=== PATIENT | male | born 1985 | race African-American/Black ===

== ENCOUNTER 2019-11-24 12:49 | Emergency (ER) | payer BC, SELFPAY ==
--- NOTE | ~2019-11-24 | XR_ITS ---
EXAMINATION: XR chest 2V 11/24/2019 14:34 INDICATION: Cough PROCEDURE: 2 view chest COMPARISON: No prior studies for comparison. FINDINGS: The lungs are clear. The cardiomediastinal silhouette is within normal limits. There are no pleural effusions. There is no pneumothorax suspected. IMPRESSION: 1: NO ACUTE CARDIOPULMONARY DISEASE. Reviewed, dictated and finalized at location A. [employer]
[2019-11-24 13:06] VITALS: BP 146/101; PULSE 96; RESP 18; TEMP 37.4; O2SAT 99
--- NOTE | 2019-11-24 14:18 | ED.URI ---
HPI - URI/Sore Throat General Chief Complaint: Upper Respiratory Infection Stated Complaint: Cough Time Seen by Provider: 11/24/19 14:18 Mode of arrival: ambulatory Limitations: no limitations History of Present Illness HPI Narrative: Gianluca Hopson is a 34 yo male with no prior medical history who comes to urgent care with coughing, chest tightness, wheezing. Started symptoms 2 to 3 weeks ago but is gotten progressively worse especially last couple days-states that he was starts to cough he could not hardly catch his breath Related Data Home Medications Medication Instructions Recorded Confirmed lisinopril 11/24/19 Allergies Allergy/AdvReac Type Severity Reaction Status Date / Time No Known Drug Allergies Allergy Verified 11/02/11 15:57 Review of Systems Review of Systems: Narrative: CONSTITUTIONAL: Denies fever, chills, sweats. EYES: Denies visual changes, redness, discharge. ENT: Denies rhinorrhea, congestion, sore throat, otalgia. CARDIOVASCULAR: Denies chest pain, palpitations, edema. RESPIRATORY: Denies dyspnea, wheezing, tight cough GASTROINTESTINAL: Denies abdominal pain, nausea, vomiting, diarrhea. GENITOURINARY: Denies dysuria, hematuria, abnormal discharge SKIN: Denies rash or itching. NEUROLOGIC: Denies numbness, or focal weakness. PSYCHIATRIC: Denies anxiety or depression. [facility] Family History Family History Other No active medical problems Social History Social History (Updated 11/24/19 @ 14:27 by Safia Santiago CNP) Smoking status: Never smoker Alcohol intake: current Comments At time of signature, I agree with nursing past medical, surgical, social and family history. There is no relevant family history pertinent to the presenting complaint. Exam Narrative: Exam Narrative: GENERAL: This is a well-nourished, well-developed patient, in some distress. HEAD: normocephalic, atraumatic. EYES: Sclera clear/white. Vision is grossly intact. EARS: External ears normal, Hearing grossly intact. NOSE: External nose normal with no obvious nasal discharge, nares without redness, no rhinorrhea. THROAT: Mucous membranes moist, posterior pharynx clear. NECK: Neck supple, non-tender CARDIOVASCULAR: Regular rate and rhythm without murmurs, gallops, or rubs. RESPIRATORY: Coarse and diminished to auscultation. Breath sounds equal bilaterally. Mild wheezing, rales, or rhonchi. GASTROINTESTINAL: Abdomen soft, non-tender, SKIN: warm, intact with no suspicious lesions or rash, good texture and turgor. NEURO: awake, alert, and oriented to person, place and time. There were no obvious focal neurologic abnormalities. Steady gait EXTREMITIES: Normal range of motion. No edema. . BACK: Nontender without deformity or crepitance. No flank tenderness. Course Course Emergency Course: Chest x-ray Started on albuterol inhaler, prednisone, cough syrup Vital Signs Vital signs: Vital Signs Temperature 99.3 F 11/24/19 13:06 Pulse Rate 96 11/24/19 13:06 Respiratory Rate 18 11/24/19 13:06 Blood Pressure 146/101 H 11/24/19 13:06 Pulse Oximetry 99 11/24/19 13:06 Temperature 99.3 F 11/24/19 13:06 Pulse Rate 96 11/24/19 13:06 Respiratory Rate 18 11/24/19 13:06 Blood Pressure 146/101 H 11/24/19 13:06 Pulse Oximetry 99 11/24/19 13:06 MDM - URI/Sore Throat Differential Diagnosis Differential diagnosis: Likely upper respiratory infection, bronchitis, pharyngitis and other Discharge Plan Discharge Clinical Impression: Upper respiratory infection Qualifiers: URI type: unspecified viral URI Qualified Code(s): J06.9 - Acute upper respiratory infection, unspecified Patient Disposition: Home, Self-Care Condition: Stable Instructions: Antibiotic Form, Upper Respiratory Infection (ED), Acute Bronchitis (ED) Prescriptions: New prednisone 20 mg tablet 40 mg PO DAILY Qty: 10 RF: 0 codeine-[place]
== END 2019-11-24 15:00 | disposition home or self-care (01) ==
PROVIDERS: Emergency Provider Nurse Practitioner
DX: J06.9 Acute upper respiratory infection, unspecified (principal)
CPT/HCPCS: 71046; 99203; G0463

== ENCOUNTER 2021-08-23 14:46 | Emergency (ER) | payer BC, SELFPAY ==
[2021-08-23 15:00] VITALS: BP 118/89; PULSE 96; RESP 16; TEMP 36.9; O2SAT 98
--- NOTE | 2021-08-23 15:09 | ED.NAVMDI ---
HPI - Nausea/Vomiting/Diarrhea General Chief complaint: Nausea/Vomiting/Diarrhea Stated complaint: mild nausea/diarrhea/dash Time Seen by Provider: 08/23/21 15:09 Source: patient, RN notes reviewed and old records reviewed Mode of arrival: ambulatory Limitations: no limitations History of Present Illness HPI Narrative: 36-year-old man presents to the [facility] with complaints of nausea, abdominal cramping and diarrhea for 3 days. Patient states that is gotten better but states that he is still having intermittent diarrhea. Patient states that several weeks ago he started eating clean and then 4 days ago ate at [employer], shortly thereafter started having the abdominal discomfort, nausea, vomiting diarrhea. Currently has no pain on exam. Requesting a work note MD elicited complaint: nausea, vomiting and diarrhea Related Data Home Medications Medication Instructions Recorded Confirmed lisinopril 40 mg PO DAILY 08/23/21 08/23/21 losartan-hydrochlorothiazide 1 tablet PO DAILY 08/23/21 08/23/21 metoprolol succinate 50 mg PO DAILY 08/23/21 08/23/21 Allergies Allergy/AdvReac Type Severity Reaction Status Date / Time No Known Drug Allergies Allergy Other Verified 08/23/21 15:04 Review of Systems Review of Systems: All systems reviewed & are unremarkable except as noted in HPI and below Constitutional: Constitutional: Reports as per HPI and Reports no additional constitutional complaints Eyes: Eyes: Reports as per HPI ENT: Reports system reviewed and no additional complaints, except as documented Cardiovascular: Cardiovascular: Reports no additional cardiovascular complaints Respiratory: Respiratory: Reports no additional respiratory complaints Gastrointestinal: Gastrointestinal: Reports abdominal pain, Reports bloating, Reports diarrhea and Reports nausea Musculoskeletal: Musculoskeletal: Reports no additional musculoskeletal complaints Integumentary/Breasts: Skin/Breast: Reports system reviewed and no additional complaints, except as docu Neurologic: Reports system reviewed and no additional complaints, except as documented Psychiatric: Psychiatric: Reports no additional psychiatric complaints Allergic/Immunologic: Allergic/Immunologic: Reports no additional allergic/immunologic complaints [facility] Past Medical History Medical History (Updated 08/23/21 @ 19:35 by Radha Brewer) Hypertension Surgical History Surgical History (Updated 08/23/21 @ 19:36 by Radha Brewer) No significant past surgical history Family History Family History Other No active medical problems Social History Social History (Updated 08/23/21 @ 19:36 by Radha Brewer) Smoking status: Never smoker Alcohol intake: current Living arrangements: with family Gender identity (if verbalized by the patient): Male Comments At the time of my signature, I reviewed and agree with the nursing past medical, surgical, social, and family history. There is no relevant family history pertinent to the patient complaint. Exam Const: General: cooperative, healthy appearing, comfortable, no acute distress, well developed and alert Nutritional Appearance: obese morbidly obese Orientation/consciousness: patient oriented x3 Limitations: no limitations HENMT: Head: normal to inspection Ears: hearing grossly normal bilaterally and external ears normal Throat: posterior oropharynx normal Eyes: General: appearance normal, both eyes and all related structures Neck: Neck: normal visual inspection, full ROM, no lymphadenopathy and no meningeal signs Chest: Chest palpation & inspection: normal inspection of the chest Resp: Effort & Inspection: normal respiratory effort and able to speak in complete sentences Cardio: Rate: regular rate Rhythm: regular rhythm GI: Inspection: normal to inspection GI Palp: No abdominal tenderness and No Tenderness to palpation present (GI) Auscultation: n
== END 2021-08-23 15:20 | disposition home or self-care (01) ==
PROVIDERS: Emergency Provider Nurse Practitioner; PCP Emergency Medicine
DX: K52.9 Noninfective gastroenteritis and colitis, unspecified (principal); I10 Essential (primary) hypertension
CPT/HCPCS: 99211; G0463

== ENCOUNTER 2022-01-21 16:20 | Emergency (ER) | payer BC, SELFPAY ==
[2022-01-21 16:33] VITALS: BP 140/100; PULSE 90; RESP 16; TEMP 37.3; O2SAT 99
--- NOTE | 2022-01-21 17:00 | ED.URI ---
HPI - URI/Sore Throat General Chief Complaint: Upper Respiratory Infection Stated Complaint: Covid Test Time Seen by Provider: 01/21/22 16:35 Source: patient Mode of arrival: ambulatory Limitations: no limitations History of Present Illness HPI Narrative: Mr. Hopson is a 36-year-old male patient presenting to the clinic today with complaints of possible COVID. He reports that his family members are positive for COVID and that he has been trying to keep his distance however he developed COVID-like symptoms this morning. States that his work is wanting him COVID testing. Reports that he has fever, cough, sore throat, nasal congestion and body aches. He denies any chest pain or shortness of breath currently SPO2 is 99% on room air and he is respiratory rate is 16 nonlabored MD elicited complaint: fever, cough, sore throat, nasal congestion and other (Body aches) Related Data Home Medications Medication Instructions Recorded Confirmed lisinopril 40 mg PO DAILY 08/23/21 01/21/22 losartan-hydrochlorothiazide 1 tablet PO DAILY 08/23/21 01/21/22 metoprolol succinate 50 mg PO DAILY 08/23/21 01/21/22 Allergies Allergy/AdvReac Type Severity Reaction Status Date / Time No Known Drug Allergies Allergy Other Verified 01/21/22 16:52 Review of Systems Review of Systems: Pertinent positives per HPI. Patient denies any rash, visual changes, dizziness, shortness of breath, chest pain, palpitations, nausea, vomiting, diarrhea, constipation, abdominal pain, or any urinary issues. PMFSH Past Medical History Medical History Hypertension Surgical History Surgical History No significant past surgical history Family History Family History Other No active medical problems Social History Social History Smoking status: Never smoker Alcohol intake: current Gender identity (if verbalized by the patient): Male Comments At the time of my signature, I reviewed and agree with the nursing past medical, surgical, social, and family history. There is no relevant family history pertinent to the patient complaint. Exam Narrative: General: Well-developed, obese, in no apparent distress Head: Normocephalic, atraumatic Eyes: Pupils equally round and reactive to light bilaterally, EOM intact, sclera and conjunctive clear, no discharge, lids normal Ears: TMs intact and clear, ear canals clear, no drainage, grossly hearing normal. Nose: Nares patent, clear nasal discharge, no inflammation, no sinus tenderness. Mouth: Oral pharynx without lesions or masses, good dentition, MMM. Oropharynx red Neck: Supple, trachea midline, no enlargement of anterior or posterior cervical nodes, no thyroid masses or goiter palpable. Cardio: Regular rate and rhythm, s1 and s2 normal, no murmur appreciated. Resp: Clear to auscultation bilaterally, no rhonchi, rales, wheezing or rubs Course Course Emergency Course: Portions of this record may have been created with voice recognition software. Level of Care: Express Care Visit Vital Signs Vital signs: Vital Signs Temperature 37.3 C 01/21/22 16:33 Pulse Rate 90 01/21/22 16:33 Respiratory Rate 16 01/21/22 16:33 Blood Pressure 140/100 H 01/21/22 16:33 Pulse Oximetry 99 01/21/22 16:33 Temperature 37.3 C 01/21/22 16:33 Pulse Rate 90 01/21/22 16:33 Respiratory Rate 16 01/21/22 16:33 Blood Pressure 140/100 H 01/21/22 16:33 Pulse Oximetry 99 01/21/22 16:33 Vital signs reviewed MDM - URI/Sore Throat MDM Narrative Medical decision making narrative: At the time of visit patient is resting comfortably on the exam table. Respirations are nonlabored at 16 breaths/min. SPO2 is 99% on room air. He denies any chest pain or shortness
== END 2022-01-21 17:08 | disposition home or self-care (01) ==
PROVIDERS: Emergency Provider Nurse Practitioner Family; PCP Emergency Medicine
DX: U07.1 COVID-19 (principal); I10 Essential (primary) hypertension; G47.30 Sleep apnea, unspecified
CPT/HCPCS: 87426; 87804; 99213; C9803; G0463